=== PATIENT | female | born 1985 | race Caucasian/White ===

== ENCOUNTER 2017-06-02 09:42 | Outpatient (CLI) | payer OTHER | END 2017-06-02 09:43 | disposition home or self-care (01) | LOC: LAB 09:42 | PROVIDERS: ATTEND Family Medicine | DX: R39.9 Unspecified symptoms and signs involving the genitourinary system (principal); R82.90 Unspecified abnormal findings in urine | CPT/HCPCS: 87086 ==

== ENCOUNTER 2017-06-21 13:19 | Outpatient (CLI) | payer OTHER ==
--- NOTE | 2017-06-21 15:42 | ULT ---
BILATERAL UPPER EXTREMITY VENOUS DOPPLER ULTRASOUND: HISTORY: Bilateral leg pain. TECHNIQUE: Brand scale ultrasound with color-flow and spectral Doppler imaging of the deep venous systems of the lower extremities is performed bilaterally. FINDINGS: There is good flow, compression, and augmentation noted in the common femoral, femoral, deep femoral, popliteal, posterior tibial, and greater saphenous veins on either side. IMPRESSION: No evidence of deep venous thrombosis in either lower extremity. POS: [facility]
== END 2017-06-21 13:20 | disposition home or self-care (01) ==
LOC: ULT 13:19
PROVIDERS: ATTEND Family Medicine
DX: M79.605 Pain in left leg (principal); Z33.1 Pregnant state, incidental
CPT/HCPCS: 93970

== ENCOUNTER 2017-06-28 09:42 | Outpatient (CLI) | payer OTHER ==
--- NOTE | 2017-06-28 10:33 | ULT ---
OB ULTRASOUND: HISTORY: followup. FINDINGS: A single live intrauterine gestation is seen with measurements corresponding to an estimated gestatio nal age of 19 weeks 2 days and HOLLY at 11/20/17. The estimated weight measures 283 gm or 10 ounc es. measurements as follows: BPD 4.44 cm, 19 weeks 3 days HC 16.80 cm, 19 weeks 3 days AC 13.92 cm, 19 weeks 2 days FL 2.96 cm, 19 weeks 1 day heart rate measures 157 b.p.m. Amniotic fluid is adequate. Placenta is posteriorly located wi thout evidence of placenta previa. Three-vessel cord, cord insertion, kidneys, bladder, stomach, 4-chamber heart, lateral ventric les, spine, lips/nose, upper and lower extremities are visualized. The cerebellum is not satisfactor gigi visualized. IMPRESSION: Single live intrauterine gestation of 19 weeks 2 days estimated gestational age and estimated date of delivery at 11/20/17. POS: [facility]
== END 2017-06-28 09:43 | disposition home or self-care (01) ==
LOC: ULT 09:42
PROVIDERS: ATTEND Family Medicine
DX: Z34.92 Encounter for supervision of normal pregnancy, unspecified, second trimester (principal); Z3A.19 19 weeks gestation of pregnancy
CPT/HCPCS: 76805

== ENCOUNTER 2017-08-24 17:18 | Day surgery (SDC) | payer OTHER ==
[2017-08-24 17:55] VITALS: BP 126/80; TEMP 99.3
[2017-08-24 17:56] VITALS: BMI 29.2
[2017-08-24 18:30] LABS: Bilirubin Negative (Negative); Blood, Urine Negative (Negative); Clarity CLEAR (Clear); Glucose, Urine (Dipstick) Negative (Negative); Leukocyte Negative (Negative); Nitrite Negative (Negative); Protein, Urine (Dipstick) Negative (Neg-Trace); Specific Gravity, Urine 1.014 (1.002-1.036)
--- NOTE | 2017-08-25 03:49 | SS ---
LABOR AND DELIVERY TRIAGE NOTE DATE OF EVALUATION: 08/24/2017 ATTENDING PHYSICIAN: Leela Cervantes M.D. EVALUATING PHYSICIAN: Roberth Oscar M.D. CHIEF COMPLAINT: Left-sided abdominal pain. HISTORY OF PRESENT ILLNESS: Ms. 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 She denies associated contractions or vaginal bleeding. She does note that she has had intermittent episodes of cloudy urine over the last several weeks. PAST OBSTETRICAL HISTORY: This is her first . Her care has been uncomplicated with Dr. Candido high. PAST MEDICAL HISTORY: Unremarkable. PAST SURGICAL HISTORY: Appendectomy, wisdom teeth. CURRENT MEDICATIONS: vitamins only. SOCIAL HISTORY: She denies tobacco, alcohol, or illicit drug use. REVIEW OF SYSTEMS: Denies nausea, vomiting, fever, chills, or recent illness. PHYSICAL EXAMINATION: ABDOMEN: Soft and nontender. There is no guarding or rebound. PELVIC: Pelvic examination is deferred. heart rate tracing is reassuring with no deceleration s. No uterine activity is seen. Urinalysis is negative with the exception of trace to 1+ ketones. ASSESSMENT: 1. A 27-week intrauterine . 2. Suspected round ligament pain. 3. No evidence of labor. PLAN: At this time, the patient was discharged home. The nature of round ligament pain was discusse d with her in detail. She was told that she could use some Tylenol and warm tub soaks for symptomati c relief. She was also encouraged to increase her oral intake. She voiced understanding of her inst ructions and was sent home in good condition.
== END 2017-08-24 19:10 | disposition home or self-care (01) ==
LOC: L&D/OP 17:18
PROVIDERS: ATTEND Family Medicine
DX: O99.89 Other specified diseases and conditions complicating pregnancy, childbirth and the puerperium (principal); R10.9 Unspecified abdominal pain; R10.2 Pelvic and perineal pain; Z79.899 Other long term (current) drug therapy; Z3A.27 27 weeks gestation of pregnancy
CPT/HCPCS: 81003

== ENCOUNTER 2017-09-10 16:54 | Day surgery (SDC) | payer OTHER ==
[2017-09-10 17:17] VITALS: BMI 30.7
[2017-09-10 17:18] VITALS: BP 130/65; TEMP 99
[2017-09-10 18:17] LABS: Amnisure Test No Membranes Rupture (No Rupture)
[2017-09-10 18:18] LABS: Amnisure Internal Control QC ACCEPTABLE (ACCEPTABLE)
--- NOTE | 2017-09-10 23:13 | PRG ---
DATE OF SERVICE: 09/10/2017 PRIMARY OB: Dr. Leela Cervantes. CHIEF COMPLAINT: Leakage of fluid. HISTORY OF PRESENT ILLNESS: The patient is a 32-year-old G1, P0 female with an intrauterine pregnanc y at 29 weeks and 5 days, who is followed by Dr. Leela Cervantes. At work today noted that she was leaki ng fluid and more so than usual and came for evaluation. Patient denies leaking through her clothing , but noted that her underwear had gotten down. The patient denies any vaginal bleeding. She denies otherwise any other change in discharge. She denies illness, fever, fall, headache, chest pain, ghada rtness of breath, nausea, vomiting, diarrhea, constipation, urinary urgency or frequency, and vaginal bleeding. PAST MEDICAL HISTORY: Negative. PAST SURGICAL HISTORY: She has had an appendectomy and oral surgery for wisdom teeth. ALLERGIES: No known drug allergies. MEDICATIONS: vitamins. SOCIAL HISTORY: Denies drug, alcohol, or tobacco use. OB LABS: RPR nonreactive, GC/Chlamydia negative, hepatitis B surface antigen is negative, HIV nonrea ctive, rubella is immune. Blood type is A positive. REVIEW OF SYSTEMS: Per HPI. PHYSICAL EXAMINATION: VITAL SIGNS: Blood pressure 130/65, temperature 99, pulse of 89, and respiratory rate of 18. GENERAL: She appears to be in no acute distress. She is alert and oriented, cooperative and pleasan t to interact with. HEAD: Normocephalic, atraumatic. LUNGS: Clear to auscultation bilaterally. HEART: Regular rate and rhythm. ABDOMEN: Soft, gravid, nontender to palpation. No CVA tenderness, no vertebral tenderness to palpat ion, no paravertebral tenderness. No SI joint tenderness. Vulva is without masses, lesions, or eryt golden. Vagina is moist. Cervix appears to be normal long and closed without any redness, lesions, or discharge of significance. There is no pulling. CERVICAL: Cervix is closed, thick, and high. heart tracing performed. Baseline is noted to be in the 130s with moderate long-term variabili ty. Tocometer showed some in minimal irritability. No contraction pattern visible. LABORATORY DATA: AmniSure test is negative. SOFTWARE QUALITY ENGINEER-3 is negative for yeast, Trichomonas, and Gardnerell a. ASSESSMENT AND PLAN: The patient is a 32-year-old G1, P0 female, presenting to labor and delivery af ter having experienced some wetness in her underwear. Patient has no evidence of rupture of membrane s at this time. No evidence of vaginal infection including Trichomonas, yeast or bacterial vaginosis . The patient has been given labor precautions and has been given reassurance of these findi ngs. She does report that her Glucola test was elevated at 155 and is awaiting instructions on her 3 -hour test. She has been encouraged to call back to the clinic to make that appointment.
== END 2017-09-10 18:30 | disposition home or self-care (01) ==
LOC: L&D/OP 16:54 → SDC/OP 16:54 → L&D/OP 18:30
PROVIDERS: ATTEND Family Medicine
DX: O99.89 Other specified diseases and conditions complicating pregnancy, childbirth and the puerperium (principal); N89.8 Other specified noninflammatory disorders of vagina; Z3A.29 29 weeks gestation of pregnancy; Z79.899 Other long term (current) drug therapy
CPT/HCPCS: 84112; 87480; 87510; 87660; 99285

== ENCOUNTER 2017-11-27 21:00 | Inpatient (IN) | payer OTHER ==
[2017-11-27 22:37] VITALS: BMI 33.2
[2017-11-27] MEDS ORDERED: Ibuprofen 800 MG TAB PO PRN (22:48)
[2017-11-27] MEDS ORDERED: Ondansetron HCl/PF 4 MG/2 ML Vial IVP PRN (22:48)
[2017-11-27] MEDS ORDERED: Promethazine HCl 25 MG/ML VIAL IM PRN (22:48)
[2017-11-27] MEDS ORDERED: HYDROcodone/Acetaminophen 5/325 mg Tablet PO PRN (22:48)
[2017-11-27] MEDS ORDERED: Butorphanol Tartrate 1 MG/ML VIAL SLOW IVP PRN (22:48)
[2017-11-27] MEDS ORDERED: NS / Oxytocin 40 units/1000ml 1,000 ML IV PRN (22:48)
[2017-11-27] MEDS ORDERED: Acetaminophen/Codeine 30-300mg Tablet PO PRN (22:48)
[2017-11-27] MEDS ORDERED: Lidocaine 1% (PF) 30 ML VIAL SC PRN (22:48)
[2017-11-27] MEDS ORDERED: Zolpidem Tartrate 5 MG TAB PO PRN (22:48)
[2017-11-27] MEDS ORDERED: NS w/ Oxytocin 10 units 500 ML IV SCH ×2 (22:48)
[2017-11-27] MEDS ORDERED: Acetaminophen 500 MG TAB PO PRN (22:48)
[2017-11-27] MEDS: Lactated Ringer's 1,000 ML IV SCH (22:55)
[2017-11-27 23:18] LABS: Hemoglobin 12.2 g/dL (12.0-16.0); Mean Corpuscular HGB CONC 34.8 g/dL (32.0-36.0); Mean Corpuscular Hemoglobin 32.6 pg (27.0-31.0); Mean Corpuscular Volume 93.5 fl (81.0-99.0); Mean Platelet Volume 5.9 fL (7.4-10.4); Platelet Count 191 thou/uL (130-400); RBC Distribution Width 14.2 % (11.5-14.5); Red Blood Cell (RBC) Count 3.74 mill/uL (4.20-5.40); White Blood Cell (WBC) Count 7.6 thou/uL (4.8-10.8)
[2017-11-27] MEDS: Misoprostol 100 MCG TAB VAG SCH (23:52)
[2017-11-28 00:01] LABS: Syphilis Antibody Nonreactive (Nonreactive); Syphilis Antibody Index 0.03 S/CO (<1.00 Non-Reactive)
[2017-11-28 00:22] LABS: HBSAg Index 0.23 S/CO (0-0.99); Hep B Surf Ag Non-Reactive S/CO (NonReactive)
[2017-11-28] MEDS: Lactated Ringer's 1,000 ML IV SCH ×3 (04:13→16:53)
[2017-11-28] MEDS ORDERED: DISCONTINUE ALL PREVIOUS NARCOTICS FS SCH (07:00)
[2017-11-28] MEDS: Bupivacaine 0.5% 20 ML, fentaNYL Citrate/PF 400 MCG in Sodium Chloride 0.9% 72 ML EPIDURAL SCH ×2 (08:34→15:48)
[2017-11-28] MEDS ORDERED: SODIUM CHLORIDE ONE (11:11)
[2017-11-28] MEDS ORDERED: Bupivacaine 0.25% HCL 30 ML VIAL ONE (11:11)
[2017-11-28] MEDS ORDERED: Lidocaine 2% MPF 10 ML AMP (For Epidural Use) ONE (11:11)
[2017-11-28] MEDS: Misoprostol 100 MCG TAB VAG SCH ×2 (14:29→15:12)
[2017-11-28] MEDS ORDERED: CEFAZOLIN/Water 2 GM/20 ML SYRINGE ONE (16:57)
[2017-11-28] MEDS ORDERED: Misoprostol 200 MCG TAB ONE (19:03)
[2017-11-28] MEDS ORDERED: Lanolin Ointment 7 GM TUBE TOP PRN (19:53)
[2017-11-28] MEDS ORDERED: Bisacodyl 10 MG SUPP PR PRN (19:53)
[2017-11-28] MEDS ORDERED: Milk Of Magnesia 30 ML UDCUP PO PRN (19:53)
[2017-11-28] MEDS ORDERED: Acetaminophen/Codeine 30-300mg Tablet PO PRN (19:53)
[2017-11-28] MEDS ORDERED: diphenhydrAMINE 25 MG CAP PO PRN (19:53)
[2017-11-28] MEDS ORDERED: Ondansetron HCl/PF 4 MG/2 ML Vial IVP PRN (19:53)
[2017-11-28] MEDS ORDERED: Benzocaine/Menthol 20-0.5% 60 ML CAN TOP PRN (19:53)
[2017-11-28] MEDS ORDERED: Preparation H Ointment 28 GM TUBE PR PRN (19:53)
[2017-11-28] MEDS ORDERED: Clindamycin/D5W 900 mg/50 ml Premix Bag ONE (19:55)
[2017-11-28] MEDS: NS / Oxytocin 40 units/1000ml 1,000 ML IV SCH ×2 (19:58→23:58)
[2017-11-28] MEDS ORDERED: Methylergonovine 0.2 MG/ML VIAL ONE (20:00)
[2017-11-28 20:14] LABS: Hemoglobin 10.9 g/dL (12.0-16.0); Mean Corpuscular HGB CONC 34.7 g/dL (32.0-36.0); Mean Corpuscular Volume 95.1 fl (81.0-99.0); Mean Platelet Volume 6.8 fL (7.4-10.4); Platelet Count 123 thou/uL (130-400); RBC Distribution Width 14.4 % (11.5-14.5); Red Blood Cell (RBC) Count 3.32 mill/uL (4.20-5.40)
[2017-11-28] MEDS ORDERED: Methylergonovine 0.2 MG/ML VIAL IM SCH (20:15)
[2017-11-28] MEDS ORDERED: Sodium Chloride 0.9% 10 ML ONE (20:22)
[2017-11-28] MEDS: Gentamicin Sulfate 360 MG in Sodium Chloride 0.9% 100 ML IVPB SCH (20:51)
[2017-11-28] MEDS ORDERED: Ampicillin 1 GM in Sodium Chloride 0.9% 100 ML IVPB SCH (21:00)
--- NOTE | 2017-11-28 21:12 | PDOC.EVN ---
Event Note - Event Note Event Note: CTSP for bleeding by Dr. Artur Cervantes. S/p with epidural, now with persistant bleeding. Exam shows clot in JOHANNA and high midline laceration and small right sidewall/ labial laceration. Vag pack placed. Payan in place. Repaired areas with 2-0 and 3-0 chromic respectively. Will leave vag pack in place overnight and observe.
[2017-11-28] MEDS ORDERED: Hydrocerin (Eucerin) Cream 120 gm Jar TOP PRN (21:49)
[2017-11-28] MEDS: Ferrous Sulfate 325 MG TAB PO SCH (22:22)
[2017-11-28] MEDS: Docusate Calcium (SURFAK) 240 MG CAP PO SCH (22:22)
[2017-11-28] MEDS: Ibuprofen 800 MG TAB PO SCH ×2 (22:22→23:07)
[2017-11-28] MEDS: Prenatal Vitamin 1 TAB PO SCH (22:22)
[2017-11-29 00:23] LABS: Hemoglobin 9.6 g/dL (12.0-16.0); Mean Corpuscular Volume 94.4 fl (81.0-99.0); Mean Platelet Volume 5.7 fL (7.4-10.4); Platelet Count 115 thou/uL (130-400); RBC Distribution Width 14.5 % (11.5-14.5); White Blood Cell (WBC) Count 11.6 thou/uL (4.8-10.8)
[2017-11-29] MEDS ORDERED: Fentanyl 100 MCG/2 ML VIAL ONE ×2 (01:24→02:38)
[2017-11-29] MEDS ORDERED: Oxytocin 10 UNITS/ML VIAL ONE (01:24)
[2017-11-29] MEDS ORDERED: Promethazine HCl 25 MG/ML VIAL IM PRN ×2 (01:36→02:35)
[2017-11-29] MEDS ORDERED: Promethazine HCl 25 MG/ML VIAL SLOW IVP PRN ×2 (01:36→02:35)
[2017-11-29] MEDS ORDERED: Ondansetron HCl/PF 4 MG/2 ML Vial IVP PRN ×2 (01:36→02:35)
--- NOTE | 2017-11-29 01:52 | PDOC.EVN ---
Event Note - Event Note Event Note: CTSP for bleeding. Pulse 110s. AF. PEx: blood seen from pack. USG ordered by Dr. jones c/w possible retained POCs. To OR for EUA and D&C.
[2017-11-29] MEDS: Clindamycin/D5W 600 MG in Premix Bag 1 BAG IVPB SCH ×3 (03:30→22:56)
[2017-11-29] MEDS ORDERED: Misoprostol 200 MCG TAB ONE ×2 (04:29→09:48)
--- NOTE | 2017-11-29 05:45 | OP ---
DATE OF OPERATION: 11/28/2017 PREOPERATIVE DIAGNOSES: 1. Persistent bleeding. 2. Suspected retained products of conception. PROCEDURE: Sharp and suction curettage of the uterus. SURGEON: Roberth Oscar MD POLICE BOOKING OFFICER SURGEON: Leela Cervantes MD ANESTHESIA: General endotracheal. ESTIMATED BLOOD LOSS: 200 mL COMPLICATIONS: None. FINDINGS: 1. Firm uterus 2 fingerbreadths below the umbilicus. 2. Tissue obtained upon curettage consistent with retained products of conception. TECHNIQUE IN DETAIL: After good general endotracheal anesthesia was achieved, the patient was preppe d and draped in the usual sterile fashion in the dorsal lithotomy position using the [employer] cane stirr ups. A vaginal pack that had been previously placed was removed. There was a large amount of clot i n the lower uterine segment and this was removed. The cervix was grasped in four quadrants with a ri ng forceps to define its limits. A sharp curet was then placed in the uterus and in a systematic fas hion. Each quadrant was sharply curetted. Tissue consistent with retained products of conception we re obtained. Once this was accomplished, a 12-mm suction curet was placed into the uterus and no sig nificant additional tissue was removed. Minimal bleeding was seen at the conclusion of the case. Th e vaginal sidewall lacerations that have been previously sutured were noted to be intact and not blee ding. Cytotec 600 mg was placed per rectum at the completion of the case. All instruments were then removed from the vagina. Sponge and instrument counts were correct. The patient tolerated the proc edure well and was taken back to Labor and Delivery in good condition.
[2017-11-29 06:20] LABS: Hemoglobin 9.1 g/dL (12.0-16.0); Mean Corpuscular HGB CONC 34.8 g/dL (32.0-36.0); Mean Corpuscular Hemoglobin 32.8 pg (27.0-31.0); Mean Corpuscular Volume 94.3 fl (81.0-99.0); Mean Platelet Volume 5.9 fL (7.4-10.4); Platelet Count 93 thou/uL (130-400); RBC Distribution Width 14.3 % (11.5-14.5); Red Blood Cell (RBC) Count 2.76 mill/uL (4.20-5.40)
[2017-11-29] MEDS: Misoprostol 200 MCG TAB PO SCH ×4 (06:45→22:57)
[2017-11-29] MEDS: Prenatal Vitamin 1 TAB PO SCH (07:24)
[2017-11-29] MEDS: Ibuprofen 800 MG TAB PO SCH ×3 (07:25→22:56)
[2017-11-29] MEDS: Ferrous Sulfate 325 MG TAB PO SCH ×2 (07:25→22:57)
[2017-11-29] MEDS: Docusate Calcium (SURFAK) 240 MG CAP PO SCH ×2 (07:25→22:57)
--- NOTE | 2017-11-29 07:47 | ULT ---
PRELIMINARY REPORT/[facility]/EMERGENCY AFTER HOURS PROCEDURE: EXAM: US Pelvis Complete, Transabdominal CLINICAL HISTORY: 32 years old, female; Signs and symptoms; Other: hemorrhage; Patient HX: Vaginal delivery today with hemorrhage TECHNIQUE: Real-time transabdominal pelvic ultrasound (complete) with image documentation. COMPARISON: No relevant prior studies available. FINDINGS: Uterus/cervix: Enlarged uterus in keeping with state measuring 18.2 9.8x12 cm. Severely thickened endometrium heterogeneous in appearance in the lower uterine segment measuring up to 4.6 cm. Heterogeneous endometrial mass not excluded Right ovary: Not visualized Left ovary: Not visualized Free fluid: No free fluid. IMPRESSION: Severe endometrial thickening predominately in the lower uterine segment with possible 4.6 cm mass. R etained products of conception not excluded Thank you for allowing us to participate in the care of your patient. Dictated and Authenticated by: Kevin Howard MD 11/29/2017 1:11 AM Central Time ([place] & [place]) FINAL REPORT ULTRASOUND PELVIC WITH DOPPLER: Date: 11/29/17 HISTORY: hemorrhage. COMPARISON: OB ultrasound dated 06/28/17. FINDINGS: The uterus is engorged, measuring 18.2 x 9.8 x 12.0 cm, although is expected . Ovaries not seen. There is heterogeneous material within the endometrial cavity in the lower uterine segment which is n ot vascular. IMPRESSION: Nonvascular endometrial canal complex fluid suggesting hemorrhage, expected after delivery. Follow-up recommended. Findings and impression are concordant with the preliminary report by [facility]. POS: [facility]
[2017-11-29] MEDS ORDERED: Methylergonovine 0.2 MG TAB PO SCH (09:00)
[2017-11-29] MEDS: HYDROcodone/Acetaminophen 5/325 mg Tablet PO PRN ×2 (12:18→22:57)
[2017-11-29] MEDS: Misoprostol 100 MCG TAB VAG SCH ×2 (13:43→13:44)
[2017-11-29] MEDS ORDERED: Sodium Chloride 0.9% 10 ML ONE ×2 (14:57→23:17)
[2017-11-29] MEDS ORDERED: Succinylcholine Chloride 20 MG/ML 10 ml SYRINGE FS ONE (15:05)
[2017-11-29] MEDS ORDERED: PROPOFOL 200 MG/20 ML VIAL ONE (15:05)
[2017-11-29] MEDS ORDERED: Lidocaine 1% PF 5 ML VIAL ONE (15:05)
[2017-11-29] MEDS: Gentamicin Sulfate 360 MG in Sodium Chloride 0.9% 100 ML IVPB SCH (22:56)
[2017-11-30] MEDS: Clindamycin/D5W 600 MG in Premix Bag 1 BAG IVPB SCH ×2 (04:14→05:56)
[2017-11-30 05:16] LABS: #Eosinphils 0.1 thou/uL (0.0-0.7); #Lymphocytes 2.3 thou/uL (1.20-3.40); #Monocytes 0.6 thou/uL (0.11-0.59); %Basophils 0.2 % (0.0-1.0); %Eosinophils 0.8 % (0.0-10.0); %Lymphocytes 21.2 % (21.0-51.0); %Monocytes 5.7 % (0.0-10.0); %Neutrophils 72.1 % (42.0-75.0); Hemoglobin 8.3 g/dL (12.0-16.0); Mean Corpuscular HGB CONC 33.7 g/dL (32.0-36.0); Mean Corpuscular Hemoglobin 32.3 pg (27.0-31.0); Mean Corpuscular Volume 95.9 fl (81.0-99.0); Mean Platelet Volume 5.9 fL (7.4-10.4); Platelet Count 134 thou/uL (130-400); RBC Distribution Width 14.4 % (11.5-14.5); Red Blood Cell (RBC) Count 2.58 mill/uL (4.20-5.40); White Blood Cell (WBC) Count 11.1 thou/uL (4.8-10.8)
[2017-11-30] MEDS: Ibuprofen 800 MG TAB PO SCH ×3 (05:56→22:10)
[2017-11-30] MEDS: Misoprostol 200 MCG TAB PO SCH ×3 (05:57→09:33)
[2017-11-30] MEDS: Prenatal Vitamin 1 TAB PO SCH (08:56)
[2017-11-30] MEDS: HYDROcodone/Acetaminophen 5/325 mg Tablet PO PRN (08:56)
[2017-11-30] MEDS: Ferrous Sulfate 325 MG TAB PO SCH ×2 (08:58→20:13)
[2017-11-30] MEDS: Docusate Calcium (SURFAK) 240 MG CAP PO SCH ×2 (08:58→22:11)
[2017-11-30] MEDS: Cephalexin 250 MG CAP PO SCH ×3 (12:17→23:37)
[2017-12-01] MEDS: Cephalexin 250 MG CAP PO SCH ×2 (06:21→12:29)
[2017-12-01] MEDS: Ibuprofen 800 MG TAB PO SCH (06:21)
[2017-12-01 08:17] VITALS: BP 114/65; TEMP 97.6
[2017-12-01] MEDS: Docusate Calcium (SURFAK) 240 MG CAP PO SCH (09:09)
[2017-12-01] MEDS: Prenatal Vitamin 1 TAB PO SCH (09:09)
[2017-12-01] MEDS: Ferrous Sulfate 325 MG TAB PO SCH (09:09)
== END 2017-12-01 13:40 | disposition home or self-care (01) | DRG 767 ==
LOC: L&D 22:10 → 3SW 11-29 13:23
PROVIDERS: ADMIT Family Medicine; ATTEND Family Medicine
PROC: 10E0XZZ Delivery of Products of Conception, External Approach (ICD-10-PCS; principal; 2017-11-28)
PROC: 0KQM0ZZ Repair Perineum Muscle, Open Approach (ICD-10-PCS; 2017-11-28)
PROC: 10D07Z6 Extraction of Products of Conception, Vacuum, Via Natural or Artificial Opening (ICD-10-PCS; 2017-11-28)
PROC: 3E0P7VZ Introduction of Hormone into Female Reproductive, Via Natural or Artificial Opening (ICD-10-PCS; 2017-11-28)
PROC: 10907ZC Drainage of Amniotic Fluid, Therapeutic from Products of Conception, Via Natural or Artificial Opening (ICD-10-PCS; 2017-11-28)
PROC: 10D17Z9 Manual Extraction of Products of Conception, Retained, Via Natural or Artificial Opening (ICD-10-PCS; 2017-11-28)
DX: O48.0 Post-term pregnancy (principal); O75.2 Pyrexia during labor, not elsewhere classified; O72.2 Delayed and secondary postpartum hemorrhage; Z37.0 Single live birth; Z3A.41 41 weeks gestation of pregnancy; O99.02 Anemia complicating childbirth; O70.1 Second degree perineal laceration during delivery; O63.1 Prolonged second stage (of labor)
CPT/HCPCS: 36415; 51702; 76856; 85025; 85027; 86780; 86850; 86900; 86901; 87340; 88305; 88342; 93976; A4216; J0290; J1580; J2001; J2210; J2590; J2704; J3010; J3490; J7050; S0020

== ENCOUNTER 2018-06-06 09:53 | Outpatient (CLI) | payer OTHER ==
--- NOTE | 2018-06-06 11:33 | RAD ---
TWO VIEWS CHEST: Date: 06-06-18 Comparison: None. History: Chest pain at rest. FINDINGS: No pneumothorax, pleural fluid, focal consolidation or alveolar edema. Heart and mediastinal contours are unremarkable. IMPRESSION: No acute findings. POS: [facility]
== END 2018-06-06 09:54 | disposition home or self-care (01) ==
LOC: RAD 09:53
PROVIDERS: ATTEND Family Medicine
DX: R07.9 Chest pain, unspecified (principal)
CPT/HCPCS: 71046

== ENCOUNTER 2019-06-20 05:20 | Inpatient (IN) | payer OTHER ==
[2019-06-20] MEDS ORDERED: Ondansetron PF 4 MG/2 ML Vial IVP PRN ×3 (05:55→12:01)
[2019-06-20] MEDS ORDERED: Promethazine HCl 25 MG/ML VIAL IM PRN ×2 (05:55→06:58)
[2019-06-20] MEDS ORDERED: hydrALAZINE 20 MG/ML VIAL SLOW IVP PRN ×2 (05:55→12:01)
[2019-06-20 05:58] VITALS: BMI 35.2
[2019-06-20] MEDS ORDERED: Bicitra 30 ML UDCUP PO SCH (06:00)
[2019-06-20] MEDS ORDERED: CEFAZOLIN 2 GM in Premix Bag 1 BAG IVPB SCH (06:00)
[2019-06-20] MEDS: Lactated Ringer's 1,000 ML IV SCH ×2 (06:02→07:21)
[2019-06-20 06:24] LABS: Hemoglobin 11.7 g/dL (12.0-16.0); Mean Corpuscular HGB CONC 34.8 g/dL (32.0-36.0); Mean Corpuscular Hemoglobin 32.7 pg (27.0-31.0); Mean Platelet Volume 5.8 fL (7.4-10.4); Platelet Count 188 thou/uL (130-400); RBC Distribution Width 12.2 % (11.5-14.5); Red Blood Cell (RBC) Count 3.58 mill/uL (4.20-5.40); White Blood Cell (WBC) Count 6.4 thou/uL (4.8-10.8)
[2019-06-20] MEDS ORDERED: Naloxone HCl 0.4 mg/ml Vial IVP PRN ×2 (06:58)
[2019-06-20] MEDS ORDERED: Naloxone HCl 0.4 mg/ml Vial IV PRN (06:58)
[2019-06-20] MEDS ORDERED: Meperidine HCl/PF 25 MG/ML VIAL SLOW IVP PRN (06:58)
[2019-06-20] MEDS ORDERED: diphenhydrAMINE 50 MG/ML VIAL IVP PRN (06:58)
[2019-06-20] MEDS ORDERED: L&D-Morphine 4 MG/ML VIAL SLOW IVP PRN (06:58)
[2019-06-20] MEDS ORDERED: Promethazine HCl 25 MG SUPP PR PRN (06:58)
[2019-06-20] MEDS ORDERED: HYDROmorphone 2 MG/ML VIAL SLOW IVP PRN (06:58)
[2019-06-20] MEDS ORDERED: Ondansetron HCl/PF 4 MG/2 ML Vial IVP PRN (06:58)
[2019-06-20] MEDS ORDERED: Communication Order-Pharmacy FS SCH (07:00)
[2019-06-20] MEDS ORDERED: Ketorolac Tromethamine 30 MG/ML VIAL IVP SCH (07:00)
[2019-06-20 07:02] LABS: Syphilis Antibody Nonreactive (Nonreactive); Syphilis Antibody Index 0.04 S/CO (<1.00 Non-Reactive)
[2019-06-20 07:03] LABS: HBSAg Index 0.14 S/CO (0-0.99); Hep B Surf Ag Non-Reactive S/CO (NonReactive)
[2019-06-20] MEDS ORDERED: MORPHINE 5 MG/10 ML PF VIAL ONE (07:08)
[2019-06-20] MEDS ORDERED: Fentanyl 100 MCG/2 ML VIAL ONE (07:08)
[2019-06-20] MEDS ORDERED: Ondansetron PF 4 MG/2 ML Vial ONE (07:09)
[2019-06-20] MEDS ORDERED: ePHEDrine/0.9% NaCl/PF SYRINGE 50 mg/10 ml ONE (07:09)
[2019-06-20] MEDS ORDERED: Oxytocin 10 UNITS/ML VIAL ONE ×2 (07:09→08:29)
[2019-06-20] MEDS ORDERED: Metoclopramide HCl 10 MG/2 ML VIAL ONE (07:09)
[2019-06-20] MEDS ORDERED: PHENYLEPHRINE-NS 100 MCG/ML 10 ML SYRINGE ONE (07:09)
[2019-06-20] MEDS ORDERED: Meperidine HCl/PF 25 MG/ML VIAL ONE (10:06)
[2019-06-20] MEDS ORDERED: NS / Oxytocin 40 units/1000ml 1,000 ML ONE (10:51)
[2019-06-20] MEDS: Ketorolac Tromethamine 30 MG/ML VIAL IVP PRN ×3 (11:22→22:52)
--- NOTE | 2019-06-20 11:32 | OP ---
DATE OF PROCEDURE: 06/20/2019 PREOPERATIVE DIAGNOSIS: Term intrauterine with breech presentation. POSTOPERATIVE DIAGNOSIS: Term intrauterine with breech presentation, status post delivery. PROCEDURE PERFORMED: Primary low-transverse section. PRODUCT SAFETY HEAD: Perico Cervantes MD ANESTHESIA: Spinal anesthetic. COMPLICATIONS: No complications. DESCRIPTION OF PROCEDURE: The patient was taken to the operating room. After adequate spinal anesthetic, the patient was placed in the supine position. The abdomen was shaved and prepped in the usual sterile technique. A Payan catheter had been placed in the bladder. The skin was opened with sharp dissection. Peritoneum opened with sharp and blunt dissection. Fascia opened with sharp dissection. Noted, the abdomen was filled with a gravid uterus. An Jurgen O retractor was placed and a low-transverse incision was made on the uterus. Membranes were ruptured. Clear fluid was encountered and a viable was delivered from footling breech presentation without difficulty. Infant breathed and cried spontaneously. After approximately 30 seconds, the cord was clamped and cut and infant was handed under the care of the Neonatology Team. Cord blood was obtained and the placenta was delivered manually and appeared intact. Ring forceps was placed over the hysterotomy edges and the hysterotomy was then closed in continuous fashion using 0 Monocryl. A second layer of imbrication was placed with 0 Monocryl and noted hemostasis was adequate. The Jurgen O retractor was removed. The peritoneal edges were closed with 2-0 chromic. Noted, there were no bleeders. The fascia was then closed in continuous fashion using 0 Vicryl. Sponge and instrument counts were correct. A running layer of 2-0 plain was used to approximate the subcutaneous tissue and 4-0 Vicryl was used to close the skin. The patient tolerated the procedure very well and noted the baby is a viable female , weight 6 pounds 15 ounces. Apgars 9 at one minute, 9 at five minutes. There were no complications. They went to [facility]. The patient went to recovery room in good condition. Noted, quantitative blood loss was 200 mL without complications. Job ID: [id number]
[2019-06-20] MEDS ORDERED: Simethicone Chewable 80 MG TAB PO PRN (12:01)
[2019-06-20] MEDS ORDERED: Lanolin Ointment 7 GM TUBE TOP PRN (12:01)
[2019-06-20] MEDS ORDERED: Bisacodyl 10 MG SUPP PR PRN (12:01)
[2019-06-20] MEDS ORDERED: HYDROcodone/Acetaminophen 5/325 mg Tablet PO PRN (12:01)
[2019-06-20] MEDS ORDERED: diphenhydrAMINE 25 MG CAP PO PRN (12:01)
[2019-06-20] MEDS ORDERED: Acetaminophen 325 MG TAB PO PRN (12:01)
[2019-06-20] MEDS: Ibuprofen 800 MG TAB PO SCH (15:46)
[2019-06-21] MEDS ORDERED: Sodium Chloride 0.9% 10 ML ONE (04:52)
[2019-06-21] MEDS: Ketorolac Tromethamine 30 MG/ML VIAL IVP PRN (04:58)
[2019-06-21] MEDS: Ferrous Sulfate 325 MG TAB PO SCH ×3 (05:02→22:13)
[2019-06-21] MEDS: Ibuprofen 800 MG TAB PO SCH ×4 (05:02→22:14)
[2019-06-21] MEDS: Docusate Calcium (SURFAK) 240 MG CAP PO SCH ×3 (05:02→22:13)
[2019-06-21 07:42] LABS: Hemoglobin 10.8 g/dL (12.0-16.0); Mean Corpuscular HGB CONC 33.4 g/dL (32.0-36.0); Mean Corpuscular Hemoglobin 32.4 pg (27.0-31.0); Mean Corpuscular Volume 96.9 fL (78.0-98.0); Mean Platelet Volume 6.1 fL (7.4-10.4); Platelet Count 151 thou/uL (130-400); RBC Distribution Width 12.3 % (11.5-14.5); Red Blood Cell (RBC) Count 3.34 mill/uL (4.20-5.40); White Blood Cell (WBC) Count 8.4 thou/uL (4.8-10.8)
[2019-06-21] MEDS: Prenatal Vitamin 1 TAB PO SCH (08:29)
[2019-06-21] MEDS: Acetaminophen/Codeine 30-300mg Tablet PO PRN ×3 (08:30→17:26)
[2019-06-22] MEDS: Acetaminophen/Codeine 30-300mg Tablet PO PRN ×2 (00:18→11:58)
[2019-06-22] MEDS: Ibuprofen 800 MG TAB PO SCH ×3 (06:09→20:54)
[2019-06-22] MEDS: Docusate Calcium (SURFAK) 240 MG CAP PO SCH ×2 (09:33→20:55)
[2019-06-22] MEDS: Prenatal Vitamin 1 TAB PO SCH (09:33)
[2019-06-22] MEDS: Ferrous Sulfate 325 MG TAB PO SCH ×2 (09:33→20:55)
[2019-06-23] MEDS: Ibuprofen 800 MG TAB PO SCH (05:45)
[2019-06-23 08:34] VITALS: BP 130/68; TEMP 98.5
[2019-06-23] MEDS: Prenatal Vitamin 1 TAB PO SCH (08:42)
[2019-06-23] MEDS: Docusate Calcium (SURFAK) 240 MG CAP PO SCH (08:43)
[2019-06-23] MEDS: Acetaminophen/Codeine 30-300mg Tablet PO PRN (08:43)
== END 2019-06-23 11:25 | disposition home or self-care (01) | DRG 788 ==
LOC: L&D 05:20 → 3SW 10:57
PROVIDERS: ADMIT Family Medicine; ATTEND Family Medicine
PROC: 10D00Z1 Extraction of Products of Conception, Low, Open Approach (ICD-10-PCS; principal; 2019-06-20)
DX: O32.1XX0 Maternal care for breech presentation, not applicable or unspecified (principal); Z37.0 Single live birth; Z3A.39 39 weeks gestation of pregnancy
CPT/HCPCS: 36415; 51702; 84112; 85027; 86780; 86850; 86900; 86901; 87340; 99285; G0378; J0690; J1885; J2175; J2274; J2405; J2590; J2765; J3010

== ENCOUNTER 2021-04-11 01:27 | Emergency (ER) | payer BC | END 2021-04-11 04:51 | disposition home or self-care (01) | LOC: ERS 01:27 | DX: R22.41 Localized swelling, mass and lump, right lower limb (principal) ==